=== PATIENT | male | born 1940 | race Caucasian/White ===

== ENCOUNTER → 2018-01-29 | Outpatient (CLI) | payer MEDICARE ==
[~2018-01-29] MED LIST: DOCU-416 PO; FES4PT PO; FINA1TAB7 PO; HYDR-4309 PO; OXYC-865 PO; PHEN-529 PO; SULF-197 PO; TAMS0.4C25 PO; VIT1CAPS9 PO
--- NOTE | 2018-01-29 08:50 | RADIOLOGY IMAGING REPORT ---
FACILITY: [facility] PATIENT NAME: Nicholas Rodríguez : 1940 MR: [id number] V: [id number] EXAM DATE: ORDERING PHYSICIAN: CAMPBELL STOKES TECHNOLOGIST: [place] [facility] [place]: Nicholas Rodríguez : 1940 Visit/Account:[id number] Date of Sevice: 01/29/2018 ABDOMEN PELVIS ESWL CYSTO W/O HISTORY: Kidney stones TECHNIQUE: Axial images acquired through the abdomen/pelvis. Coronal and sagittal reformatting also performed. No IV contrast administered. Dose Lowering Technique One of the following dose optimization techniques was utilized in the performance of this exam: Autom ated exposure control; adjustment of the mA and/or kV according to the patient's size; or use of an i terative reconstruction technique. Specific details can be referenced in the facility's radiology C T exam operational policy. COMPARISON: December 25, 2016 FINDINGS: Visualized lung bases: There is chronic scarring/atelectasis in the lung bases. Also noted is a non calcified 5 mm nodule lateral aspect of the left lower lobe best seen on image 58 of series 5 that kevin s remained stable Hepatobiliary: 2.5 mm cyst in the inferomedial right hepatic lobe has remained stable. Subcentimete r hypodensity in the left lobe also remains stable Spleen: Negative. Adrenals: Negative. Pancreas: Several punctate calcifications noted within the pancreas unchanged Kidneys ureters and bladder: Two cysts in the right kidney again noted. There is a subcentimeter hyp odensity upper pole the left kidney too small to characterize although remains unchanged. There is n o demonstration of hydronephrosis or hydroureter no calcifications are identified in the right renal collecting system at this time. There is a 2 mm calcification in the midpole of the left kidney. Al so noted is a vague hyperdensity in the lower pole of the left kidney measuring approximately 6 cm in diameter slightly more conspicuous when compared the prior study. These could represent a cluster o f calculi in the lower pole calyx or calcifications within the adjacent renal period. Urinary bladde r is decompressed Genitalia: Negative. GI: There is a small hiatal hernia. There is diffuse colonic diverticulosis most prominent in the s igmoid colon although no CT evidence of acute diverticulitis the appendix is visualized and does not appear inflamed Vessels/spaces/nodes: Moderate vascular calcination seen in the abdominal aorta and branch vessels. Mild ectasia of the infrarenal abdominal aorta again seen Bones/soft tissues: There is a small umbilical hernia containing fat. Again noted is spondylolysis at L5 with a 8 mm anterior listhesis of L5 with respect to S1 scattered sclerotic foci have remained stable within the visualized bones likely representing bone islands. There are bilateral inguinal hernias containing fat right greater than left Additional findings: None pertinent. IMPRESSION: No demonstration of hydronephrosis or hydroureter No evidence of right nephrolithiasis. 2 mm calcification mid pole the left renal collecting system again noted. Also noted is a vague hyperdensity in the lower pole the left kidney measuring approximately 6 cm in diameter which is slightly more conspicuous when compared to the prior study. This could represent a cluster of calculi in the lower pole calyx or calcifications within the adjacent renal pyramid. Extensive colonic diverticulosis although no CT evidence of acute diverticulitis Additional chronic findings as described Report Dictated By: Khadra Arriaza MD at 01/29/2018 8:26 AM Report E-Signed By: Khadra Arriaza MD at 01/29/2018 8:46 AM WSN:[email or web address]
== END ==
LOC: CT 07:06
PROVIDERS: ATTEND Urology
DX: K57.30 Diverticulosis of large intestine without perforation or abscess without bleeding (principal); I25.10 Atherosclerotic heart disease of native coronary artery without angina pectoris; I77.811 Abdominal aortic ectasia; K42.9 Umbilical hernia without obstruction or gangrene; K40.20 Bilateral inguinal hernia, without obstruction or gangrene, not specified as recurrent; M47.896 Other spondylosis, lumbar region
CPT/HCPCS: 74176

== ENCOUNTER → 2018-07-31 | Outpatient (CLI) | payer MEDICARE ==
[~2018-07-31] MED LIST changes: -HYDR-4309 PO; +HYDR-653 PO
--- NOTE | 2018-07-31 13:26 | RADIOLOGY IMAGING REPORT ---
[place]AC[place] [facility] [place] NAME: Nicholas Rodríguez : 1940 MR: [id number] V: [id number] EXAM DATE: ORDERING PHYSICIAN: CAMPBELL STOKES TECHNOLOGIST: Location: [facility] - [place] Patient: Nicholas Rodríguez : 1940 Visit/Account:[id number] Date of Sevice: 07/31/2018 Exam type: CHEST PA AND LAT History: Cough for three weeks Comparison: December 26, 2016. Findings: There is mild peribronchial thickening noted bilaterally which appears to be chronic. No acute appea ring infiltrates, pleural effusions or pulmonary edema identified. The cardiac swelling is normal in size. The trachea is in midline.. There are degenerative changes of both shoulder joints right gre ater than left IMPRESSION: 1. Mild chronic peribronchial thickening although no evidence of acute-appearing pulmonary infiltrat es , Report Dictated By: Khadra Arriaza MD at 07/31/2018 1:20 PM Report E-Signed By: Khadra Arriaza MD at 07/31/2018 1:21 PM WSN:[email or web address]
== END ==
LOC: RAD 10:52
PROVIDERS: ATTEND Urology
DX: R05 Cough (principal); R91.8 Other nonspecific abnormal finding of lung field
CPT/HCPCS: 71046

== ENCOUNTER → 2018-11-23 | Outpatient (REF) | payer MEDICARE | LOC: ZZSENDIN 12:00 | PROVIDERS: ATTEND Urology | DX: C61 Malignant neoplasm of prostate (principal) | CPT/HCPCS: 88305; 88344 ==